=== PATIENT | female | born 1965 | race Caucasian/White ===

== ENCOUNTER 2019-01-25 14:53 | Emergency (ER) | payer SELFPAY ==
[2019-01-25 14:54] VITALS: BP 162/86; PULSE 98; RESP 16; TEMP 36.6; O2SAT 97; BMI 33.9
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
[2019-01-25] MEDS: Ondansetron ODT 4 MG Tablet PO (15:54)
== END 2019-01-25 16:37 | disposition home or self-care (01) ==
PROVIDERS: Emergency Provider Emergency Medicine
DX: S43.401A Unspecified sprain of right shoulder joint, initial encounter (principal); V43.62XA Car passenger injured in collision with other type car in traffic accident, initial encounter; Y92.410 Unspecified street and highway as the place of occurrence of the external cause; I25.2 Old myocardial infarction; Z88.0 Allergy status to penicillin
CPT/HCPCS: 70450; 71046; 72125; 73060; 73090; 99285